=== PATIENT | female | born 1970 | race Two or more races ===

== ENCOUNTER → 2018-03-24 09:30 | Outpatient (CLI) | payer OTHER | END | disposition home or self-care (01) | LOC: LAB 09:30 | DX: N39.0 Urinary tract infection, site not specified (principal); E03.8 Other specified hypothyroidism; E11.65 Type 2 diabetes mellitus with hyperglycemia; E78.2 Mixed hyperlipidemia; E11.21 Type 2 diabetes mellitus with diabetic nephropathy; E21.2 Other hyperparathyroidism ==

== ENCOUNTER 2018-03-24 10:16 | Outpatient (CLI) | payer OTHER | END 2018-03-24 14:35 | disposition home or self-care (01) | LOC: SONOGRAMA 10:16 | DX: E03.8 Other specified hypothyroidism (principal); E04.1 Nontoxic single thyroid nodule ==

== ENCOUNTER 2018-04-27 07:50 | Outpatient (CLI) | payer OTHER | END 2018-04-27 08:02 | disposition home or self-care (01) | LOC: NUCLEAR 07:50 | DX: D35.1 Benign neoplasm of parathyroid gland (principal) | CPT/HCPCS: 78070; A9500 ==

== ENCOUNTER 2018-09-11 09:32 | Outpatient (CLI) | payer OTHER | END 2018-09-11 09:37 | disposition home or self-care (01) | LOC: LAB 09:32 | DX: M32.8 Other forms of systemic lupus erythematosus (principal) ==

== ENCOUNTER → 2018-09-29 | Outpatient (CLI) | payer OTHER | END | disposition home or self-care (01) | LOC: NUCLEAR 08:00 | DX: M13.0 Polyarthritis, unspecified (principal); M06.4 Inflammatory polyarthropathy | CPT/HCPCS: 78306; A9503 ==

== ENCOUNTER → 2019-01-27 11:49 | Outpatient (CLI) | payer OTHER | END | disposition home or self-care (01) | LOC: LAB 11:49 | DX: N20.0 Calculus of kidney (principal) ==

== ENCOUNTER 2019-01-27 13:28 | Outpatient (CLI) | payer OTHER | END 2019-01-27 14:59 | disposition home or self-care (01) | LOC: MRI 13:28 | DX: D44.6 Neoplasm of uncertain behavior of carotid body (principal); D35.5 Benign neoplasm of carotid body; C75.4 Malignant neoplasm of carotid body; M54.89 Other dorsalgia | CPT/HCPCS: 70543; 70553; 72148 ==

== ENCOUNTER 2019-08-19 10:00 | Outpatient (CLI) | payer OTHER | END 2019-08-19 10:04 | disposition home or self-care (01) | LOC: LAB 10:00 | DX: N39.0 Urinary tract infection, site not specified (principal); E11.65 Type 2 diabetes mellitus with hyperglycemia; E03.8 Other specified hypothyroidism; D64.89 Other specified anemias ==

== ENCOUNTER 2019-08-24 09:13 | Outpatient (CLI) | payer OTHER | END 2019-08-24 09:35 | disposition home or self-care (01) | LOC: MAMO-SONO 09:13 | DX: Z12.31 Encounter for screening mammogram for malignant neoplasm of breast (principal); Z87.898 Personal history of other specified conditions ==

== ENCOUNTER 2021-04-03 07:39 | Outpatient (CLI) | payer OTHER | END 2021-04-03 07:48 | disposition home or self-care (01) | LOC: NUCLEAR 07:39 | PROVIDERS: ATTEND Internal Medicine Cardiovascular Disease | DX: R07.89 Other chest pain (principal) | CPT/HCPCS: 78452; 93017; A9500 ==

== ENCOUNTER 2021-08-28 07:28 | Outpatient (CLI) | payer OTHER | END 2021-08-28 07:29 | disposition home or self-care (01) | LOC: NUCLEAR 07:28 | PROVIDERS: ATTEND Internal Medicine Cardiovascular Disease | DX: E21.3 Hyperparathyroidism, unspecified (principal) ==

== ENCOUNTER 2024-08-10 06:05 | Day surgery (SDC) | payer OTHER ==
[2024-07-23 08:52] VITALS: BP 145/90
[2024-07-23 09:13] LABS: HEMATOCRIT 37.5 % (36.0-45.00); HEMOGLOBIN 12.4 g/dL (12.0-15.00); MEAN CORPUSCULAR HEMOGLOBIN 28.5 pg (27.00-32.0); MEAN CORPUSCULAR HGB CONC 33.1 g/dl (32.0-36.0); PLATELET COUNT 264 K/uL (150-450); RED BLOOD COUNT 4.36 M/uL (4.00-6.00); RED CELL DISTRIBUTION WIDTH 14.2 % (11.5-14.5)
[2024-07-23 09:22] LABS: PH,URINE 6.5 (5.0-8.0); URINE APPEARANCE Clear; URINE BILIRRUBIN Negative (NEGATIVE); URINE BLOOD Negative; URINE COLOR Yellow; URINE GLUCOSE Negative (NEGATIVE); URINE KETONE Negative (NEGATIVE); URINE LEUKOCYTE Moderate; URINE NITRATE Negative; URINE PROTEIN Negative (NEGATIVE); URINE UROBILINOGEN 0.2 E.U./dl
[2024-07-23 09:29] LABS: URINE BACTERIA 2975.3 uL (0.0-1933); URINE EPITHELIAL CELLS 36.5 uL (0.0-38.8); URINE RBC 6.1 uL (0.0-20.8)
[2024-07-23 09:32] LABS: URINE CAST 0.73 uL (0.0-1.40)
[2024-07-23 09:40] LABS: INR 0.98; PARTIAL THROMBOPLASTIN TIME 27.6 SECONDS (22.0-34.0); PROTHROMBIN TIME 10.7 SECONDS (9.0-11.5)
[2024-07-23 10:05] LABS: ALBUMIN 3.8 gm/dL (3.4-5.0); BILIRUBIN TOTAL 0.46 mg/dL (0.3-1.2); CALCIUM 10.2 mg/dL (8.5-10.1); CREATININE SERUM 0.67 mg/dL (0.55-1.02); GFR 91.38; GLOBULINA 3.6 G/DL (2.4-3.5); POTASSIUM 5.12 mEq/L (3.5-5.1); TOTAL PROTEIN 7.4 gm/dL (6.4-8.2)
[~2024-08-10] VITALS: Ht 157.5 cm; Wt 59.0 kg
[~2024-08-10 06:05] MED LIST: IRBESARTAN-HCT1 EACH PO; KAPSPARGO SPRIN50 MG PO; LEVOTHYROXINE25 MCG PO
[2024-08-10] MEDS ORDERED: CEFAZOLIN SODIUM 1,000 MG VIAL ONE (13:56)
[2024-08-10] MEDS ORDERED: MORPHINE SULFATE 4 MG/ML VIAL IV ONE (17:30)
== END 2024-08-10 19:05 | disposition home or self-care (01) ==
LOC: CIR.AMB 06:05
PROVIDERS: ATTEND Surgery
DX: K43.9 Ventral hernia without obstruction or gangrene (principal); I10 Essential (primary) hypertension; E78.5 Hyperlipidemia, unspecified
CPT/HCPCS: 49594; C1781

== ENCOUNTER 2025-04-17 19:10 | Emergency (ER) | payer OTHER ==
[~2025-04-17] VITALS: Ht 157.5 cm; Wt 59.0 kg
[2025-04-17] MEDS ORDERED: CLOTRIMAZOLE/BETAMETHASONE DIP 15 GM TUBE TOP SCH (20:20)
[2025-04-17] MEDS ORDERED: METHYLPREDNISOLONE SOD SUCC 40 MG VIAL IV ONE (20:30)
[2025-04-17] MEDS ORDERED: FAMOtidine 10 MG/ML (4ML VIAL) IV ONE (20:30)
[2025-04-17] MEDS ORDERED: DIPHENHYDRAMINE HCL 50 MG/ML VIAL 1ML IV ONE (20:30)
[2025-04-17] MEDS ORDERED: CEFTRIAXONE SODIUM 1,000 MG VIAL IV ONE (20:30)
[2025-04-17] MEDS ORDERED: CEFTRIAXONE SODIUM 1,000 MG VIAL ONE (21:06)
[2025-04-17] MEDS ORDERED: METHYLPREDNISOLONE SOD SUCC 40 MG VIAL ONE (21:06)
[2025-04-17] MEDS ORDERED: DIPHENHYDRAMINE HCL 50 MG/ML VIAL 1ML ONE (21:06)
[2025-04-17] MEDS ORDERED: FAMOTIDINE/PF 20 MG/2 ML VIAL ONE (21:11)
[2025-04-17 21:55] LABS: BASO % 0.4 % (0.1-1.2); EOS # 0.57 (0.04-0.54); EOS % 6.3 % (0.7-7.0); LYMPH # 2.07 (1.18-3.74); LYMPH % 22.9 % (19.3-53.1); MEAN PLATELET VOLUME 11.60 fl (9.4-12.4); MONO # 0.65 (0.24-0.82); MONO % 7.2 % (4.7-12.5); NEUT # 5.68 (1.56-6.13); NEUT % 62.9 % (34.0-71.1); RED CELL DISTRIBUTION WIDTH 13.1 % (11.6-14.4)
[2025-04-17 22:15] LABS: ALT/SGPT 23.0 U/L (12-78); AST/SGOT 13.0 U/L (15-37); BILIRUBIN TOTAL 0.18 mg/dL (0.3-1.2); BUN CREA RATIO 19.0 (7.0-25.0); CREATININE SERUM 0.95 mg/dL (0.55-1.02); GFR 60.85; GLOBULINA 3.6 G/DL (2.4-3.5); GLUCOSE FASTING 114.0 mg/dL (65-100); OSMOLALITY SERUM 288.0 MOSM/KG (275-295)
[2025-04-17 22:31] LABS: URINE APPEARANCE Clear; URINE BILIRRUBIN Negative (NEGATIVE); URINE BLOOD Negative; URINE COLOR Dark Yellow; URINE GLUCOSE Negative (NEGATIVE); URINE KETONE Negative (NEGATIVE); URINE LEUKOCYTE Small; URINE NITRATE Positive; URINE PROTEIN Trace (NEGATIVE); URINE UROBILINOGEN 1.0 E.U./dl
[2025-04-17 22:34] LABS: URINE BACTERIA 125.9 uL (0.0-1933); URINE EPITHELIAL CELLS 9.5 uL (0.0-38.8); URINE RBC 7.9 uL (0.0-20.8); URINE WBC 53.0 uL (0.0-23.2)
[2025-04-17 22:39] LABS: URINE CAST 0.00 uL (0.0-1.40)
[2025-04-17] MEDS ORDERED: JOCK ITCH15 G1 TOP (22:55)
[2025-04-17] MEDS ORDERED: PEPCID AC20 MG PO (22:55)
[2025-04-17] MEDS ORDERED: BACTRIM DS TAB1 EACH PO (22:55)
== END 2025-04-17 23:13 | disposition home or self-care (01) ==
LOC: ER 19:11
PROVIDERS: General Practice
DX: N39.0 Urinary tract infection, site not specified (principal); B35.6 Tinea cruris; E03.9 Hypothyroidism, unspecified; I10 Essential (primary) hypertension